=== PATIENT | female | born 1970 | race Two or more races ===

== ENCOUNTER 2017-01-25 14:10 | Emergency (ER) | payer OTHER ==
[2017-01-25 14:17] VITALS: BP 123/82; PULSE 90; TEMP 98.6; BMI 33.5
[2017-01-25 14:47] LABS: URINE APPEARANCE SLCLOUDY; URINE BILIRUBIN NEGATIVE (NEGATIVE); URINE COLOR YELLOW; URINE GLUCOSE (UA) 2+ (NEGATIVE); URINE KETONE TRACE (NEGATIVE); URINE NITRITE NEGATIVE (NEGATIVE); URINE UROBILINOGEN NEGATIVE E.U./dl (0.2-1.0)
[2017-01-25 14:57] LABS: URINE BLOOD 1+ (NEGATIVE); URINE LEUK ESTERASE 2+ (NEGATIVE); URINE PROTEIN 1+ (NEGATIVE)
[2017-01-25 15:05] LABS: URINE BACTERIA RARE /hpf (NONE SEEN); URINE MUCUS MODERATE; URINE RBC 126 /hpf (0-3); URINE WBC 164 /hpf (3-5)
--- NOTE | 2017-01-25 15:21 | PDOC ---
History of Present Illness - General Chief Complaint: Urinary Problem Stated Complaint: LT SIDE PAIN Time Seen by Provider: 01/25/17 14:19 History Source: Patient Exam Limitations: No Limitations - History of Present Illness Initial Comments: 01/25/17 15:15 Patient is a 46-year-old female, history of ovarian cyst under close monitoring by [facility] presents with left lower quadrant pain. Patient states she has some pain on urination which started this a.m. however pain to left lower quadrant is 10 out of 10 described as stabbing. Denies any hematuria. No back pain. Patient reports having transvaginal ultrasounds every few months for evaluation of cysts. Past Medical History: Ovarian cysts Allergies: No known allergies Medications: None Family History: Non-contributory Social History: Denies smoking, alcohol use, or IVDU Review of Systems GENERAL/CONSTITUTIONAL: No fever or chills. No weakness. No weight change. HEAD, EYES, EARS, NOSE AND THROAT: No change in vision. No ear pain or discharge. No sore throat. CARDIOVASCULAR: No chest pain or shortness of breath. RESPIRATORY: No cough, wheezing, or hemoptysis. GASTROINTESTINAL: No nausea, vomiting, diarrhea or constipation. No rectal bleeding. GENITOURINARY: Dysuria no frequency, or change in urination. MUSCULOSKELETAL: No joint or muscle swelling or pain. No neck or back pain. SKIN : No rash or easy bruising. NEUROLOGIC: No headache, vertigo, loss of consciousness, or loss of sensation. ENDOCRINE: No increased thirst. No abnormal weight change. HEMATOLOGIC/LYMPHATIC: No anemia, easy bleeding, or history of blood clots. ALLERGIC/IMMUNOLOGIC: No hives or skin allergy. No latex allergy. Physical Exam: GENERAL: The patient is awake, alert, and fully oriented, in no acute distress. EYES: Pupils equal, round and reactive to light, extraocular movements intact, sclera anicteric, conjunctiva clear. ENT: Ears normal, nares patent, oropharynx clear without exudates. Moist mucous membranes. No uvula deviation NECK: Normal range of motion, supple without lymphadenopathy, JVD, or masses. LUNGS: Breath sounds equal, clear to auscultation bilaterally. No wheezes, and no crackles. HEART: Regular rate and rhythm, normal S1 and S2 without murmur, rub or gallop. ABDOMEN: Soft, tender to left lower quadrant, normoactive bowel sounds. Mild guarding to left lower quadrant, no rebound. No masses. No bruising or abrasions MUSCULOSKELETAL: Normal range of motion, no edema. No clubbing or cyanosis. No cords, erythema, or tenderness. No CVA Tenderness with fist palpation. NEUROLOGICAL: Cranial nerves II through XII grossly intact. Normal speech, normal gait. PSYCH: Normal mood, normal affect. SKIN: Warm, Dry, normal turgor, no rashes or lesions noted. 01/25/17 15:19 Past History - Past Medical History Allergies/Adverse Reactions: Allergies Allergy/AdvReac Type Severity Reaction Status Date / Time No Known Allergies Allergy Verified 01/25/17 14:17 Home Medications: Ambulatory Orders Lisinopril 5 mg PO ASDIR 01/25/17 Metformin Xr [Glucophage Xr -] 500 mg PO ASDIR 01/25/17 Nitrofurantoin Monohyd/M-Cryst [Macrobid -] 100 mg PO BID #14 capsule 01/25/17 Diabetes: Yes HTN: Yes - Surgical History Cholecystectomy: Yes - Psycho/Social/Smoking Cessation Hx Anxiety: No Suicidal Ideation: No Smoking History: Never smoked Information on smoking cessation initiated: No Hx Alcohol Use: No Substance Use Type: None *Physical Exam - Vital Signs Last Vital Signs Temp Pulse Resp BP Pulse Ox 98.6 F 90 18 123/82 99 01/25/17 14:14 01/25/17 14:14 01/25/17 14:14 01/25/17 14:14 01/25/17 14:14 ED Treatment Course - ADDITIONAL ORDERS Additional order review: Laboratory Results 01/25/17 14:02 Urine Color Yellow Urine Appearance Slcloudy Urine pH 5.0 Urine Protein 1+ H Urine Glucose (UA) 2+ H Urine Ketones Trace H Urine Blood 1+ H Urine Nitrite Negative Urine Bilirubin Negative Urine Urobilinogen Negative Ur Leukocyte Esterase 2+ H Urine RBC 126 Urine WBC 164 Ur Epithelial Cells Rare Urine Bacteria Rare Urine Mucus Moderate Urine HCG, Qual Negative - RADIOLOGY Radiology Studies Ordered: Category Date Time Status TRANSVAGINAL ULTRASOUND US [US] Stat Ultrasound 01/25/17 14:44 Ordered Medical Decision Making - Medical Decision Making 01/25/17 15:21 A/P: Patient with left lower quadrant pain history of ovarian cysts under close monitoring by Dr. Shore patient states that she has ultrasounds frequently to rule out torsion and evaluation of ovarian cysts. Will order ultrasound for evaluation, urinalysis and urine culture. Laboratory Tests 01/25/17 14:02 Urine Color Yellow Urine Appearance Slcloudy Urine pH 5.0 Ur Specific [place] Pending Urine Protein 1+ H Urine Glucose (UA) 2+ H Urine Ketones Trace H Urine Blood 1+ H Urine Nitrite Negative Urine Bilirubin Negative Urine Urobilinogen Negative Ur Leukocyte Esterase 2+ H Urine RBC 126 Urine WBC 164 Ur Epithelial Cells Rare Urine Bacteria Rare Urine Mucus Moderate Urine HCG, Qual Negative Urine analysis demonstrates significant urinary tract infection will DC patient on Macrobid, Motrin for pain, 6 a milligrams of Motrin given while in emergency department. Ultrasound demonstrates no free fluid or evidence of cyst. I discussed the physical exam findings, ancillary test results and final diagnoses with the patient. I answered all of the patient's questions. The patient was satisfied with the care received and felt comfortable with the discharge plan and treatment plan. The patient will call to arrange follow-up and will return to the Emergency Department with any new, persistent or worsening symptoms. 01/25/17 16:39 *DC/Admit/Observation/Transfer Diagnosis at time of Disposition: Urinary tract infection Qualifiers: Urinary tract infection type: site unspecified Hematuria presence: without hematuria Qualified Code(s): N39.0 - Urinary tract infection, site not specified - Discharge Dispostion Disposition: HOME Condition at time of disposition: Good Admit: No - Prescriptions Prescriptions: Nitrofurantoin Monohyd/M-Cryst [Macrobid -] 100 mg PO BID #14 capsule - Referrals Referrals: Daniel Hitchcock MD [Primary Care Provider] - - Patient Instructions Printed Discharge Instructions: Urinary Tract Infection Additional Instructions: Increase fluids, Motrin for pain, follow-up with [facility]IST as regularly does - Post Discharge Activity Work/School Note: Back to Work
[2017-01-25] MEDS ORDERED: IBUPROFEN 600 MG TABLET (FP) PO ONE ×2 (16:38→16:39)
== END 2017-01-25 16:40 | disposition home or self-care (01) ==
LOC: JERFT 14:10
DX: N39.0 Urinary tract infection, site not specified (principal); N83.209 Unspecified ovarian cyst, unspecified side; I10 Essential (primary) hypertension; E11.9 Type 2 diabetes mellitus without complications; Z79.84 Long term (current) use of oral hypoglycemic drugs
CPT/HCPCS: 76830-TC; 81003; 81015; 84703; 87086; 99281-25

== ENCOUNTER 2018-04-10 12:51 | Emergency (ER) | payer OTHER ==
[2018-04-10 13:03] VITALS: BP 159/62; PULSE 82; TEMP 97.6; BMI 32.1
--- NOTE | 2018-04-10 13:26 | PDOC ---
History of Present Illness - General Chief Complaint: Urinary Problem Stated Complaint: ABD PAIN Time Seen by Provider: 04/10/18 13:15 History Source: Patient Exam Limitations: No Limitations - History of Present Illness Travel History: No Initial Comments: 04/10/18 13:00 47 y/o female presents to the emergency room with complains of urinary frequency and burning for the past day. Patient denies abdominal pain, fever or chills. Patient denies back pain. Pt states similar symptoms to previous UTI. Patient denies history of renal colic. Timing/Duration: reports: intermittent Quality: reports: burning Aggravating Factors: improves with: Voiding Past History - Travel Traveled outside of the country in the last 30 days: No - Past Medical History Allergies/Adverse Reactions: Allergies Allergy/AdvReac Type Severity Reaction Status Date / Time No Known Allergies Allergy Verified 01/25/17 14:17 Home Medications: Ambulatory Orders Lisinopril 5 mg PO ASDIR 01/25/17 Nitrofurantoin Monohyd/M-Cryst [Macrobid -] 100 mg PO BID #14 capsule 01/25/17 metFORMIN XR [Glucophage Xr -] 500 mg PO ASDIR 01/25/17 Cancer: No Cardiac Disorders: No CVA: No COPD: No Diabetes: Yes (NIDDM) HTN: Yes - Surgical History Cholecystectomy: Yes - Suicide/Smoking/Psychosocial Hx Smoking History: Never smoked Information on smoking cessation initiated: No Hx Alcohol Use: No Drug/Substance Use Hx: No Substance Use Type: None Patient Lives Alone: No Lives with/in: spouse/SO Review of Systems - Review of Systems Able to Perform ROS?: Yes Constitutional: No: Symptoms Reported HEENTM: No: Symptoms Reported Respiratory: No: Symptoms reported ABD/GI: No: Symptoms Reported : Yes: Burning, Frequency. No: Flank Pain Musculoskeletal: No: Symptoms Reported Integumentary: No: Symptoms Reported Neurological: No: Symptoms reported *Physical Exam - Vital Signs Last Vital Signs Temp Pulse Resp BP Pulse Ox 97.6 F 82 20 159/62 100 04/10/18 13:01 04/10/18 13:01 04/10/18 13:01 04/10/18 13:01 04/10/18 13:01 - Physical Exam General Appearance: Yes: Nourished, Appropriately Dressed. No: Apparent Distress Cardiovascular: positive: Regular Rhythm, Regular Rate. negative: Murmur Gastrointestinal/Abdominal: positive: Soft. negative: Tenderness Musculoskeletal: negative: CVA Tenderness Integumentary: positive: Normal Color, Warm, Moist Neurologic: positive: Motor Strength 5/5 (ambulatory) Medical Decision Making - Medical Decision Making 04/10/18 13:31 Actual urinary frequency without abdominal or back pain. Patient denies fever. Patient went for urinalysis and culture. 04/10/18 14:11 Laboratory Tests 04/10/18 13:15 Urine Blood 3+ H Ur Leukocyte Esterase 1+ H Urine WBC (Auto) 83 Urine RBC (Auto) 84 Given Pyridium and bactrim. Patient has no previous sensitivity on file. 04/10/18 14:17 Laboratory Tests 04/10/18 13:15 Ur Leukocyte Esterase 1+ H Urine WBC (Auto) 83 Urine RBC (Auto) 84 *DC/Admit/Observation/Transfer Diagnosis at time of Disposition: Urinary tract infection - Discharge Dispostion Disposition: HOME Condition at time of disposition: Good - Referrals Referrals: Daniel Hitchcock MD [Primary Care Provider] - - Patient Instructions Printed Discharge Instructions: DI for Urinary Tract Infection (UTI) Additional Instructions: Please drink 2 L of water on a daily basis. Please also take medication as prescribed. If symptoms do not improve over the next 48 hours please return to the ED. - Post Discharge Activity
[2018-04-10 13:32] LABS: URINE APPEARANCE CLEAR; URINE BILIRUBIN NEGATIVE (<2.0 mg/dL); URINE COLOR LTYELLOW; URINE GLUCOSE (UA) NEGATIVE (NEGATIVE); URINE KETONE NEGATIVE (NEGATIVE); URINE NITRITE NEGATIVE (NEGATIVE); URINE PROTEIN NEGATIVE (NEGATIVE); URINE UROBILINOGEN NEGATIVE mg/dL (0.2-1.0)
[2018-04-10 13:51] LABS: URINE LEUK ESTERASE 1+ (NEGATIVE)
[2018-04-10 13:56] LABS: EPI CELLS RARE /HPF (FEW); URINE MUCUS RARE
== END 2018-04-10 14:35 | disposition home or self-care (01) ==
LOC: JERFT 12:51
DX: N39.0 Urinary tract infection, site not specified (principal); I10 Essential (primary) hypertension; E11.9 Type 2 diabetes mellitus without complications
CPT/HCPCS: 81003; 81015; 87086; 99281-25

== ENCOUNTER 2018-10-21 18:55 | Emergency (ER) | payer OTHER ==
[2018-10-21 19:21] VITALS: BP 154/74; PULSE 83; TEMP 98.4; BMI 32.4
--- NOTE | 2018-10-21 20:13 | PDOC ---
History of Present Illness - General Chief Complaint: Pain Stated Complaint: R LEG PAIN Time Seen by Provider: 10/21/18 19:33 - History of Present Illness Initial Comments: 10/21/18 20:11 48-year-old female presents for evaluation of right leg pain at the sclerotherapy for varicosity she had removed. Her pain is going on for about one week Past History - Past Medical History Allergies/Adverse Reactions: Allergies Allergy/AdvReac Type Severity Reaction Status Date / Time No Known Allergies Allergy Verified 01/25/17 14:17 Home Medications: Ambulatory Orders Lisinopril 5 mg PO ASDIR 01/25/17 metFORMIN XR [Glucophage Xr -] 500 mg PO ASDIR 01/25/17 Cancer: No Cardiac Disorders: No CVA: No COPD: No Diabetes: Yes (NIDDM) HTN: Yes - Surgical History Cholecystectomy: Yes - Suicide/Smoking/Psychosocial Hx Smoking History: Never smoked Have you smoked in the past 12 months: No Information on smoking cessation initiated: No Hx Alcohol Use: No Drug/Substance Use Hx: No Substance Use Type: None Review of Systems - Review of Systems Constitutional: No: Fever Respiratory: No: Shortness of Breath Cardiac (ROS): No: Chest Pain, Palpitations Musculoskeletal: Yes: See HPI *Physical Exam - Vital Signs Last Vital Signs Temp Pulse Resp BP Pulse Ox 98.4 F 83 20 154/74 99 10/21/18 19:18 10/21/18 19:18 10/21/18 19:18 10/21/18 19:18 10/21/18 19:18 - Physical Exam Comments: 10/21/18 20:11 HEAD: NC/AT EYES: Conjuntiva clear MS: Full ROM in all joints without edema bilateral lower extremity thighs and calves are soft and nontender normal skin color and temperature throughout without pain with passive motion of the ankle and knee mild tenderness over the right tibialis anterior NEUROLOGIC: No gross sensory or motor deficits, NVID SKIN: Normal color and temperature no lesions or rashes Moderate Sedation - Procedure Monitoring Vital Signs: Procedure Monitoring Vital Signs Temperature 98.4 F 10/21/18 19:18 Pulse Rate 83 10/21/18 19:18 Respiratory Rate 20 10/21/18 19:18 Blood Pressure 154/74 10/21/18 19:18 O2 Sat by Pulse Oximetry (%) 99 02/20/19 19:18 ED Treatment Course - RADIOLOGY Radiology Studies Ordered: Category Date Time Status DUPLEX VASCUL US-1 LEG [US] Stat Ultrasound 10/21/18 19:42 Completed *DC/Admit/Observation/Transfer Diagnosis at time of Disposition: Leg pain, right - Discharge Dispostion Disposition: HOME Condition at time of disposition: Stable Decision to Admit order: No - Referrals Referrals: Daniel Hitchcock MD [Primary Care Provider] - - Patient Instructions Additional Instructions: Return to the emergency room for worsening symptoms. Please follow-up with your vascular surgery in 1-2 days for further evaluation and treatment options. Ultrasound was negative - Post Discharge Activity
== END 2018-10-21 20:16 | disposition home or self-care (01) ==
LOC: JERFT 18:55
DX: M79.604 Pain in right leg (principal); E11.9 Type 2 diabetes mellitus without complications; I10 Essential (primary) hypertension
CPT/HCPCS: 93971-TC; 99281-25

== ENCOUNTER 2020-12-05 12:08 | Emergency (ER) | payer OTHER ==
[2020-12-05 12:58] VITALS: BP 141/71; PULSE 109; BMI 29.9
[2020-12-05 14:38] LABS: URINE COLOR ORANGE
[2020-12-05 14:39] LABS: URINE APPEARANCE TURBID
[2020-12-05 15:14] LABS: URINE RBC >200 /uL (0-23.9); URINE WBC >200 /uL (0-25.8)
== END 2020-12-05 14:20 | disposition home or self-care (01) ==
LOC: JERFT 12:08
DX: N30.00 Acute cystitis without hematuria (principal)
CPT/HCPCS: 81003; 84703; 87086; 99283-25

== ENCOUNTER 2022-08-09 07:25 | Emergency (ER) | payer OTHER ==
[2022-08-09 08:10] VITALS: RESP 18; TEMP 98.1; BMI 27.2
[2022-08-09] MEDS ORDERED: ACETAMINOPHEN 1000 MG/100 ML BAG IVPB ONE (09:13)
[2022-08-09] MEDS ORDERED: ONDANSETRON 4 MG/2 ML VIAL IVPB ONE (09:13)
[2022-08-09 09:46] LABS: PH,URINE 5.5 (5.0-8.0); URINE APPEARANCE Turbid; URINE BILIRUBIN Negative (NEGATIVE); URINE COLOR Amber; URINE GLUCOSE (UA) Negative (NEGATIVE); URINE KETONE Negative (NEGATIVE); URINE LEUK ESTERASE Trace (NEGATIVE); URINE NITRITE Negative (NEGATIVE); URINE PROTEIN 3+ (NEGATIVE); URINE UROBILINOGEN 0.2 mg/dL (0.2-1.0)
[2022-08-09 09:47] LABS: URINE BACTERIA 2+ /uL (0-1359); URINE RBC 200-500 /uL (0-23.9)
[2022-08-09 09:58] LABS: BASO % 0.3 % (0-2.0); EOS % 0.3 % (0-4.5); HEMATOCRIT 38.5 % (32.4-45.2); HEMOGLOBIN 12.3 GM/dL (10.7-15.3); LYMPH % 9.8 % (8-40); MCH 26.5 pg (25.7-33.7); MEAN CELL VOLUME 82.8 fl (80-96); MEAN PLT VOLUME 8.8 fl (7.5-11.1); NEUT % 85.6 % (42.8-82.8); PLATELET COUNT 316 10^3/uL (134-434); RBC 4.65 M/mm3 (3.60-5.2); RDW 13.9 % (11.6-15.6); WHITE BLOOD COUNT 13.7 K/mm3 (4.0-10.0)
[2022-08-09] MEDS ORDERED: CEFTRIAXONE 1,000 MG in DEXTROSE 5%-WATER - 50 ML IVPB ONE (10:05)
[2022-08-09] MEDS ORDERED: SODIUM CHLORIDE 0.9% 500 ML INFUS.BAG IV ONE (10:05)
[2022-08-09 10:24] LABS: ALBUMIN 3.7 g/dl (3.4-5.0); BLOOD UREA NITROGEN 9.7 mg/dL (7-18); CALCIUM 8.9 mg/dL (8.5-10.1)
[2022-08-09 10:28] LABS: BILIRUBIN,TOTAL 0.7 mg/dL (0.2-1); CREATININE 0.5 mg/dL (0.55-1.3); TOT PROT 7.8 g/dl (6.4-8.2)
[2022-08-09] MEDS ORDERED: ONDANSETRON 4 MG/2 ML VIAL ONE ×2 (10:37→10:39)
[2022-08-09] MEDS ORDERED: ACETAMINOPHEN INJECTION 100 ML IVPB ONE (10:39)
[2022-08-09] MEDS ORDERED: CEFTRIAXONE 1 GM/50 ML BAG ONE (10:39)
[2022-08-09 14:22] VITALS: BP 137/51; PULSE 77
== END 2022-08-09 16:39 | disposition home or self-care (01) ==
LOC: JER 07:25
PROC: 3E033GC Introduction of Other Therapeutic Substance into Peripheral Vein, Percutaneous Approach (ICD-10-PCS; principal; 2022-08-09)
DX: N30.01 Acute cystitis with hematuria (principal)
CPT/HCPCS: 36415; 74177-TC; 80053; 81003; 85025; 87086; 87186; 99285-25

== ENCOUNTER 2023-12-12 08:24 | Emergency (ER) | payer OTHER ==
[2023-12-12 08:31] VITALS: BP 172/70; PULSE 75; RESP 16; TEMP 98.5; BMI 29.5
[2023-12-12 08:55] LABS: EPI CELLS 23 /uL (0-25.1); HYALINE CASTS 1 /uL (0-3.1); PH,URINE 5.5 (5.0-8.0); URINE APPEARANCE CLOUDY; URINE BACTERIA 200 /uL (0-1359); URINE BILIRUBIN NEGATIVE (NEGATIVE); URINE COLOR YELLOW; URINE GLUCOSE (UA) 3+ (NEGATIVE); URINE KETONE NEGATIVE (NEGATIVE); URINE LEUK ESTERASE 1+ (NEGATIVE); URINE NITRITE NEGATIVE (NEGATIVE); URINE PROTEIN TRACE (NEGATIVE); URINE RBC 1637 /uL (0-23.9); URINE UROBILINOGEN 0.2 mg/dL (0.2-1.0); URINE WBC 2992 /uL (0-25.8)
[2023-12-12] MEDS ORDERED: PHENAZOPYRIDINE HCL 100 MG TABLET (FP) ONE (08:55)
[2023-12-12] MEDS ORDERED: IBUPROFEN 400 MG TABLET (FP) PO ONE (08:55)
[2023-12-12] MEDS: IBUPROFEN 400 MG TABLET (FP) PO ONE (08:57)
[2023-12-12] MEDS: PHENAZOPYRIDINE HCL 100 MG TABLET (FP) PO ONE (08:57)
== END 2023-12-12 09:12 | disposition home or self-care (01) ==
LOC: JERFT 08:24
DX: R35.0 Frequency of micturition (principal); R30.0 Dysuria; N39.0 Urinary tract infection, site not specified
CPT/HCPCS: 81003; 84703; 87086; 99283-25

== ENCOUNTER 2024-05-06 16:29 | Inpatient (IN) | payer OTHER ==
[2024-05-06] MEDS ORDERED: ONDANSETRON 4 MG/2 ML VIAL ONE (17:39)
[2024-05-06] MEDS ORDERED: FAMOTIDINE 20 MG/50 ML IVPB 20 MG/50 ML MG IVPB ONE (17:39)
[2024-05-06] MEDS ORDERED: MAG HYDROX/AL HYDROX/SIMETH 30 ML UNIT-DOSE CUP ONE (17:39)
[2024-05-06] MEDS ORDERED: ACETAMINOPHEN INJECTION 100 ML ONE (17:39)
[2024-05-06] MEDS: MAG HYDROX/AL HYDROX/SIMETH 30 ML UNIT-DOSE CUP PO ONE (18:11)
[2024-05-06] MEDS: ACETAMINOPHEN 1000 MG/100 ML BAG IVPB ONE ×2 (18:11→19:11)
[2024-05-06] MEDS: SODIUM CHLORIDE 1,000 ML IV STA (18:11)
[2024-05-06] MEDS: FAMOTIDINE 20 MG/50 ML IVPB 20 MG/50 ML MG IVPB ONE (18:12)
[2024-05-06] MEDS: ONDANSETRON 4 MG/2 ML VIAL IVPUSH ONE (18:12)
[2024-05-06 18:19] LABS: BASO % 0.7 % (0-2.0); EOS % 0.5 % (0-4.5); HEMATOCRIT 43.6 % (32.4-45.2); HEMOGLOBIN 14.2 GM/dL (10.7-15.3); MCH 27.8 pg (25.7-33.7); MCHC 32.5 g/dl (32.0-36.0); MEAN CELL VOLUME 85.5 fl (80-96); MEAN PLT VOLUME 8.6 fl (7.5-11.1); NEUT % 76.8 % (42.8-82.8); PLATELET COUNT 367 10^3/uL (134-434); RDW 13.5 % (11.6-15.6); WHITE BLOOD COUNT 15.4 K/mm3 (4.0-10.0)
[2024-05-06 18:38] LABS: POTASSIUM 3.2 mmol/L (3.5-5.1)
[2024-05-06 18:40] LABS: CALCIUM 9.8 mg/dL (8.5-10.1)
[2024-05-06 18:41] LABS: ALBUMIN 4.3 g/dl (3.4-5.0); BLOOD UREA NITROGEN 13.7 mg/dL (7-18)
[2024-05-06 18:44] LABS: CREATININE 0.7 mg/dL (0.55-1.3)
[2024-05-06 18:45] LABS: TOT PROT 8.2 g/dl (6.4-8.2)
[2024-05-06 19:36] LABS: HIV INTERPRETATION NEGATIVE (NEGATIVE)
[2024-05-06] MEDS ORDERED: POTASSIUM CHLORIDE ORAL LIQUID 20 MEQ/15 ML ONE (21:04)
[2024-05-06] MEDS: POTASSIUM CHLORIDE ORAL LIQUID 20 MEQ/15 ML PO ONE (21:09)
[2024-05-06] MEDS ORDERED: ASPIRIN 81 MG CHEWABLE TABLETS ONE (23:44)
[2024-05-07] MEDS ORDERED: ENOXAPARIN NA (PORCINE) 30 MG/0.3 ML DISP.SYRIN SQ ONE (02:00)
[2024-05-07] MEDS ORDERED: ENOXAPARIN NA (PORCINE) 40 MG/0.4 ML DISP.SYRIN SQ ONE (02:00)
[2024-05-07] MEDS: ENOXAPARIN NA (PORCINE) 60 MG/0.6 ML DISP.SYRIN SQ SCH (02:11)
[2024-05-07] MEDS: ASPIRIN 81 MG CHEWABLE TABLETS PO ONE ×2 (02:11)
[2024-05-07] MEDS: ACETAMINOPHEN 1000 MG/100 ML BAG IVPB ONE ×2 (02:22→10:14)
[2024-05-07] MEDS: ATORVASTATIN CA 40 MG TABLET (FP) PO SCH (03:09)
[2024-05-07] MEDS: ASPIRIN 325 MG TABLET PO ONE (03:10)
[2024-05-07 06:21] LABS: HEMATOCRIT 39.3 % (32.4-45.2); MCH 28.4 pg (25.7-33.7); MCHC 33.2 g/dl (32.0-36.0); MEAN CELL VOLUME 85.7 fl (80-96); MEAN PLT VOLUME 8.4 fl (7.5-11.1); PLATELET COUNT 283 10^3/uL (134-434); RBC 4.59 M/mm3 (3.60-5.2); RDW 13.5 % (11.6-15.6); WHITE BLOOD COUNT 10.4 K/mm3 (4.0-10.0)
[2024-05-07 06:44] LABS: CHLORIDE 108 mmol/L (98-107); POTASSIUM 4.3 mmol/L (3.5-5.1); SODIUM 139 mmol/L (136-145)
[2024-05-07 06:50] LABS: ANION GAP 10 mmol/L (4-13); BLOOD UREA NITROGEN 8.6 mg/dL (7-18); CO2 21 mmol/L (21-32); GLUCOSE,RANDOM 85 mg/dL (74-106)
[2024-05-07 06:54] LABS: CREATININE 0.5 mg/dL (0.55-1.3); PHOSPHOROUS 3.8 mg/dL (2.5-4.9)
[2024-05-07] MEDS ORDERED: SUMAtriptan SUCCINATE 50 MG TABLET PO SCH (10:00)
[2024-05-07] MEDS ORDERED: METHIMAZOLE 10 MG TABLET PO SCH (10:00)
[2024-05-07] MEDS ORDERED: ASPIRIN 81 MG CHEWABLE TABLETS ONE (10:11)
[2024-05-07] MEDS ORDERED: ACETAMINOPHEN INJECTION 100 ML ONE (10:11)
[2024-05-07] MEDS: ASPIRIN 81 MG CHEWABLE TABLETS PO SCH (10:13)
[2024-05-07] MEDS ORDERED: ENOXAPARIN NA (PORCINE) 80 MG/0.8 ML DISP.SYRIN SQ ONE (14:15)
[2024-05-07] MEDS: ENOXAPARIN NA (PORCINE) 80 MG/0.8 ML DISP.SYRIN SQ SCH (14:35)
[2024-05-07] MEDS: INSULIN ASPART SLIDING SCALE (NOVOLOG) 1 VIAL SQ SCH (16:54)
[2024-05-07 21:26] VITALS: BMI 27.8
[2024-05-07] MEDS ORDERED: ATORVASTATIN CA 40 MG TABLET (FP) PO SCH (22:00)
[2024-05-07] MEDS: ACETAMINOPHEN 1000 MG/100 ML BAG IVPB PRN (22:20)
[2024-05-07] MEDS: ONDANSETRON 4 MG/2 ML VIAL IVPUSH PRN (22:22)
[2024-05-08 08:25] LABS: BASO % 1.1 % (0-2.0); EOS % 2.5 % (0-4.5); HEMOGLOBIN 13.5 GM/dL (10.7-15.3); LYMPH % 33.4 % (8-40); MCH 28.1 pg (25.7-33.7); MEAN PLT VOLUME 9.1 fl (7.5-11.1); MONO % 5.5 % (3.8-10.2); NEUT % 57.5 % (42.8-82.8); PLATELET COUNT 287 10^3/uL (134-434); RBC 4.82 M/mm3 (3.60-5.2); RDW 13.6 % (11.6-15.6); WHITE BLOOD COUNT 7.8 K/mm3 (4.0-10.0)
[2024-05-08 08:38] LABS: POTASSIUM 3.8 mmol/L (3.5-5.1)
[2024-05-08 08:47] LABS: ALBUMIN 3.6 g/dl (3.4-5.0); CALCIUM 8.7 mg/dL (8.5-10.1)
[2024-05-08 08:48] LABS: BLOOD UREA NITROGEN 10.2 mg/dL (7-18)
[2024-05-08 08:51] LABS: BILIRUBIN,TOTAL 0.7 mg/dL (0.2-1); CREATININE 0.5 mg/dL (0.55-1.3)
[2024-05-08] MEDS: LISINOPRIL 5 MG TABLET PO SCH (09:37)
[2024-05-08] MEDS ORDERED: SUMAtriptan SUCCINATE 50 MG TABLET PO PRN (11:58)
[2024-05-08] MEDS: ACETAMINOPHEN 650 MG/20.3 ML ORAL SOLUTION (CUPS) PO PRN (16:37)
[2024-05-08 21:25] VITALS: BP 111/56; PULSE 71; RESP 17; TEMP 98.4
== END 2024-05-08 23:00 | disposition short-term general hospital (02) | DRG 282 ==
LOC: JER 16:29 → JERBED 22:11 → OBSVTOIN 05-07 01:25 → J4W 05-07 19:13
PROVIDERS: ADMIT Internal Medicine; ATTEND Internal Medicine
DX: I21.4 Non-ST elevation (NSTEMI) myocardial infarction (principal); I10 Essential (primary) hypertension; E11.9 Type 2 diabetes mellitus without complications; R11.2 Nausea with vomiting, unspecified; E78.5 Hyperlipidemia, unspecified; E03.9 Hypothyroidism, unspecified; G43.909 Migraine, unspecified, not intractable, without status migrainosus
CPT/HCPCS: 0241U-QW; 36415; 70450-TC; 71046-TC-FY; 80048; 80053; 82150; 82550; 82962; 83036; 83690; 83735; 84100; 84439; 84443; 84484; 85025; 85027; 86803; 87389; 93005; 93010; 93306-TC; 99285-25; G0378; J0131